=== PATIENT | male | born 1965 | race Caucasian/White ===

== ENCOUNTER 2019-07-10 08:58 | Emergency (ER) | payer BC ==
[2019-07-10] MEDS: Aspirin 81 MG Tab.Chew PO ONE (09:07)
[2019-07-10 09:24] LABS: CHLORIDE,CL 102 mEq/L (98-106); SODIUM,NA 139 mEq/L (136-145)
[2019-07-10 09:37] VITALS: BP 150/89
--- NOTE | 2019-07-10 09:38 | EDM.PDOC ---
ED HPI GENERAL MEDICAL PROBLEM - General Chief Complaint: Chest Pain Stated Complaint: chest pain Time Seen by Provider: 07/10/19 09:17 Source of Information: Reports: Patient History Limitations: Reports: No Limitations - History of Present Illness INITIAL COMMENTS - FREE TEXT/NARRATIVE: Patient presented to ER with complaints of right anterior chest pain. States has sharp twinges that radiate to the back. 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 [place] a bit short of breath. No nausea. No diaphoresis. No history of CAD. 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 No reflux/heartburn. Denies palpitations. Denies anxiety although patient does become tearful when obtaining history. Patient admits to family history of CAD. No previous stress test. Onset: Today, Sudden Duration: Hour(s): Location: Reports: Chest Quality: Reports: Ache, Sharp Severity: Moderate Improves with: Reports: Rest Associated Symptoms: Reports: Chest Pain, Shortness of Breath, Weakness. Denies : Cough, Fever/Chills, Loss of Appetite, Nausea/Vomiting Chest Pain Score (Numeric/FACES): 7 - Related Data Allergies Allergy/AdvReac Type Severity Reaction Status Date / Time No Known Allergies Allergy Verified 07/10/19 09:01 Home Meds: Home Meds Losartan Potassium 1 tab PO DAILY 07/10/19 [History] Omeprazole 20 mg PO DAILY #30 tablet. 07/10/19 [Rx] Past Medical History Cardiovascular History: Reports: Hypertension - Past Surgical History Musculoskeletal Surgical History: Reports: Shoulder Surgery, Other (See Below) Other Musculoskeletal Surgeries/Procedures:: bilat shoulder surgery 2019. back surgery Social & Family History - Family History Family Medical History: Noncontributory - Tobacco Use Smoking Status *Q: Current Every Day Smoker Years of Tobacco use: 20 Packs/Tins Daily: 0.5 - Alcohol Use Days Per Week of Alcohol Use: 7 Number of Drinks Per Day: 6 Total Drinks Per Week: 42 - Recreational Drug Use Recreational Drug Use: No ED ROS GENERAL - Review of Systems Review Of Systems: See Below Constitutional: Denies: Fever, Chills, Malaise, Weakness HEENT: Denies: Ear Discharge, Nose Pain, Sinus Problem, Vertigo Respiratory: Denies: Shortness of Breath, Cough Cardiovascular: Reports: Chest Pain. Denies: Edema, Lightheadedness Endocrine: Denies: Fatigue GI/Abdominal: Denies: Abdominal Pain, Nausea, Vomiting : Reports: No Symptoms Musculoskeletal: Reports: No Symptoms Skin: Reports: No Symptoms Neurological: Reports: No Symptoms ED EXAM, GENERAL - Physical Exam Exam: See Below Exam Limited By: No Limitations General Appearance: Alert, WD/WN, No Apparent Distress Ears: Normal External Exam, Normal TMs Nose: Normal Inspection, Normal Mucosa, No Blood Throat/Mouth: Normal Inspection, Normal Oropharynx Head: Normocephalic Neck: Normal Inspection, Supple, Non-Tender Respiratory/Chest: No Respiratory Distress, Lungs Clear, Normal Breath Sounds Cardiovascular: Regular Rate, Rhythm GI/Abdominal: Normal Bowel Sounds, Soft, Non-Tender Back Exam: Normal Inspection, Full Range of Motion. No: Muscle Spasm, Paraspinal Tenderness, Vertebral Tenderness Extremities: Normal Inspection, No Pedal Edema Neurological: Alert, Oriented Skin Exam: Warm, Dry Course - Vital Signs Last Recorded V/S: Last Vital Signs Temp 98.5 F 07/10/19 08:59 Pulse 89 07/10/19 09:36 Resp 11 L 07/10/19 09:36 BP 150/89 H 07/10/19 09:36 Pulse Ox 99 07/10/19 09:36 - Orders/Labs/Meds Orders: Active Orders 24 hr Category Date Time Status Chest 2V [CR] Stat Exams 07/10/19 09:08 Taken Labs: Laboratory Tests 07/10/19 07/10/19 07/10/19 Range/Units 09:06 09:10 09:10 WBC 9.9 (5.0-10.0) 10^3/uL RBC 4.62 (4.50-6.00) 10^6/uL Hgb 15.0 (14.0-18.0) g/dL Hct 43.3 (40.0-54.0) % MCV 93.7 (82.0-94.0) fL MCH 32.5 H (27.0-32.0) pg MCHC 34.6 (33.0-38.0) g/dL RDW Coeff of Tari 12.6 (11.0-15.0) % Plt Count 250 (150-400) 10^3/uL Neut % (Auto) 72.5 (35-85) % Lymph % (Auto) 18.2 (10-55) % [place] % (Auto) 7.0 (0-16) % Eos % (Auto) 1.9 (0-5) % Baso % (Auto) 0.4 (0-3) % Neut # (Auto) 7.16 H (1.80-7.00) 10^3/uL Lymph # (Auto) 1.80 (1.00-4.80) 10^3/uL [place] # (Auto) 0.69 (0.00-0.80) 10^3/uL Eos # (Auto) 0.19 (0.00-0.45) 10^3/uL Baso # (Auto) 0.04 10^3/uL PT 9.4 L (9.7-12.3) SEC INR 0.91 L (0.92-1.18) Sodium 139 (136-145) mEq/L Potassium 4.3 (3.5-5.0) mEq/L Chloride 102 (98-106) mEq/L Carbon Dioxide 26 (21-32) mmol/L BUN 15 (7-18) mg/dL Creatinine 1.0 (0.7-1.3) mg/dL Est Cr Clr Drug Dosing 87.85 mL/min Estimated GFR (MDRD) > 60 (>=60) mL/min Glucose 103 H (75-99) mg/dL Calcium 9.0 (8.4-10.1) mg/dL Lactate Dehydrogenase 190 (100-190) U/L Creatine Kinase 193 (35-232) U/L Troponin I < 0.017 (0.00-0.06) ng/mL Meds: Medications Discontinued Medications Generic Name Dose Route Start Last Admin Trade Name Fritzq PRN Reason Stop Dose Admin Aspirin 324 mg 07/10/19 09:07 07/10/19 09:07 Aspirin PO 07/10/19 09:08 324 mg STAT ONE Administration - Re-Assessments/Exams Free Text/Narrative Re-Assessment/Exam: 07/10/19 Labs all normal. EKG normal sinus rhythm. Chest xray normal. Discharge home. Start Omeprazole as patient does use nicotine, alcohol and admits to 10 cups of coffee per day. Scheduled stress test with Reinaldo John tomorrow. Departure - Departure Time of Disposition: 09:37 Disposition: Home, Self-Care 01 Condition: Good Clinical Impression: Atypical chest pain Prescriptions: Omeprazole 20 mg PO DAILY #30 tablet.dr Referrals: El John PA-C [Primary Care Provider] - Forms: ED Department Discharge Additional Instructions: 1. Rest 2. Decrease stimulants 3. Omeprazole 20 mg daily 4. Will contact you with appointment for stress test 5. Return if continue to have chest pain, shortness of breath or concern. - My Orders Last 24 Hours: My Active Orders 07/10/19 09:08 Chest 2V [CR] Stat - Assessment/Plan Last 24 Hours: My Active Orders 07/10/19 09:08 Chest 2V [CR] Stat
== END 2019-07-10 09:45 | disposition home or self-care (01) ==
LOC: CC.ED 08:58
DX: R07.89 Other chest pain (principal); I10 Essential (primary) hypertension; F17.210 Nicotine dependence, cigarettes, uncomplicated; Z79.899 Other long term (current) drug therapy
CPT/HCPCS: 36415; 71046; 80048; 82550; 83615; 84484; 85025; 85610; 93005; 99285-25; A9270-GY

== ENCOUNTER 2019-09-28 06:29 | Emergency (ER) | payer BC ==
[2019-09-28] MEDS ORDERED: Aspirin 81 MG Tab.Chew PO ONE (06:37)
[2019-09-28 07:01] VITALS: BP 128/88; PULSE 71
[2019-09-28 07:11] LABS: CHLORIDE,CL 103 mEq/L (98-106); SODIUM,NA 141 mEq/L (136-145)
[2019-09-28] MEDS ORDERED: Ketorolac 60 MG/2 ML SDV IM ONE (07:40)
--- NOTE | 2019-09-28 07:53 | EDM.PDOC ---
ED HPI GENERAL MEDICAL PROBLEM - General Chief Complaint: Chest Pain Stated Complaint: L Chest Pain, Reproducable Time Seen by Provider: 09/28/19 07:00 Source of Information: Reports: Patient History Limitations: Reports: No Limitations - History of Present Illness INITIAL COMMENTS - FREE TEXT/NARRATIVE: States that he slipped and fell on the rutted ground yesterday afternoon. Was able to work the rest of the afternoon. Woke about 4 am with left sided chest pain that would be really severe when he moved or took a deep breathe. If he moved the left arm it would make the pain worse. No SOB or diaphoresis with it. No other symptoms Onset: Today Location: Reports: Chest Quality: Reports: Stabbing Improves with: Reports: Rest Worsens with: Reports: Breathing, Movement Associated Symptoms: Reports: Chest Pain. Denies: Fever/Chills l chest wall Pain Score (Numeric/FACES): 10 - Related Data Allergies Allergy/AdvReac Type Severity Reaction Status Date / Time No Known Allergies Allergy Verified 09/28/19 06:49 Home Meds: Home Meds Losartan Potassium 1 tab PO DAILY 07/10/19 [History] Past Medical History Cardiovascular History: Reports: Hypertension - Past Surgical History Musculoskeletal Surgical History: Reports: Shoulder Surgery, Other (See Below) Other Musculoskeletal Surgeries/Procedures:: bilat shoulder surgery 2019. back surgery Social & Family History - Family History Family Medical History: Noncontributory - Tobacco Use Smoking Status *Q: Current Every Day Smoker Years of Tobacco use: 20 Packs/Tins Daily: 0.3 - Caffeine Use Caffeine Use: Reports: Coffee - Alcohol Use Days Per Week of Alcohol Use: 7 Number of Drinks Per Day: 4 Total Drinks Per Week: 28 - Recreational Drug Use Recreational Drug Use: No ED ROS GENERAL - Review of Systems Review Of Systems: See Below Constitutional: Denies: Fever, Chills HEENT: Reports: No Symptoms Respiratory: Reports: No Symptoms Cardiovascular: Reports: Chest Pain. Denies: Edema GI/Abdominal: Denies: Nausea, Vomiting Neurological: Reports: No Symptoms ED EXAM, GENERAL - Physical Exam Exam: See Below Exam Limited By: No Limitations General Appearance: Alert, WD/WN, Moderate Distress Ears: Normal External Exam, Normal Canal, Normal TMs Nose: Normal Inspection Throat/Mouth: Normal Inspection, Normal Oropharynx Head: Atraumatic, Normocephalic Neck: Normal Inspection, Supple, Non-Tender, Full Range of Motion Respiratory/Chest: No Respiratory Distress, Lungs Clear, Normal Breath Sounds Cardiovascular: Normal Peripheral Pulses, Regular Rate, Rhythm, No Edema, Other (increase in left sided chest pain with any palpation or movement. No crepitus noted.) GI/Abdominal: Normal Bowel Sounds, Soft Extremities: Normal Inspection, Normal Range of Motion, Non-Tender Neurological: Alert, Oriented Skin Exam: Warm, Dry, Intact Course - Vital Signs Last Recorded V/S: Last Vital Signs Temp 97.5 F 09/28/19 06:31 Pulse 71 09/28/19 07:01 Resp 16 09/28/19 07:01 BP 128/88 09/28/19 07:01 Pulse Ox 99 09/28/19 07:01 - Orders/Labs/Meds Labs: Laboratory Tests 09/28/19 09/28/19 09/28/19 Range/Units 06:36 06:40 06:40 WBC 6.7 (5.0-10.0) 10^3/uL RBC 4.25 L (4.50-6.00) 10^6/uL Hgb 14.0 (14.0-18.0) g/dL Hct 40.3 (40.0-54.0) % MCV 94.8 H (82.0-94.0) fL MCH 32.9 H (27.0-32.0) pg MCHC 34.7 (33.0-38.0) g/dL RDW Coeff of Tari 12.5 (11.0-15.0) % Plt Count 236 (150-400) 10^3/uL Neut % (Auto) 61.6 (35-85) % Lymph % (Auto) 26.9 (10-55) % [place] % (Auto) 8.7 (0-16) % Eos % (Auto) 2.5 (0-5) % Baso % (Auto) 0.3 (0-3) % Neut # (Auto) 4.11 (1.80-7.00) 10^3/uL Lymph # (Auto) 1.80 (1.00-4.80) 10^3/uL [place] # (Auto) 0.58 (0.00-0.80) 10^3/uL Eos # (Auto) 0.17 (0.00-0.45) 10^3/uL Baso # (Auto) 0.02 10^3/uL APTT 23.7 (23.2-32.3) SEC Sodium 141 (136-145) mEq/L Potassium 4.2 (3.5-5.0) mEq/L Chloride 103 (98-106) mEq/L Carbon Dioxide 24 (21-32) mmol/L BUN 16 (7-18) mg/dL Creatinine 0.9 (0.7-1.3) mg/dL Est Cr Clr Drug Dosing 97.61 mL/min Estimated GFR (MDRD) > 60 (>=60) mL/min Glucose 89 (75-99) mg/dL Calcium 8.8 (8.4-10.1) mg/dL Magnesium 1.9 (1.8-2.4) mg/dL Total Bilirubin 0.5 (0.0-1.0) mg/dL AST 32 (15-37) U/L ALT 33 (12-78) U/L Alkaline Phosphatase 67 (46-116) U/L Troponin I < 0.017 (0.00-0.06) ng/mL Total Protein 6.6 (6.4-8.2) g/dL Albumin 3.8 (3.4-5.0) g/dL Meds: Medications Discontinued Medications Generic Name Dose Route Start Last Admin Trade Name Freq PRN Reason Stop Dose Admin Aspirin 324 mg 09/28/19 06:37 09/28/19 06:50 Aspirin PO 09/28/19 06:38 324 mg ONETIME ONE Administration Ketorolac Tromethamine 60 mg 09/28/19 07:40 09/28/19 07:46 Toradol IM 09/28/19 07:41 60 mg ONETIME ONE Administration Orphenadrine Citrate 60 mg 09/28/19 07:45 09/28/19 07:53 Norflex IM 60 mg Q12H DALJIT Administration - Re-Assessments/Exams Free Text/Narrative Re-Assessment/Exam: 09/28/19 07:45 discussed possible rib fracture on xray. labs and EKG are normal. Departure - Departure Time of Disposition: 07:56 Disposition: Home, Self-Care 01 Condition: Good Clinical Impression: Left-sided chest wall pain Instructions: Chest Wall Pain, [id number] Referrals: Micki John PA-C [Primary Care Provider] - Forms: ED Department Discharge Additional Instructions: flexeril 10 mg twice a day as needed for muscle spasms mobic 15 mg daily for pain and inflammation Recheck with Reinaldo in a week for follow up or sooner if pain changes. - Problem List & Annotations (1) Left-sided chest wall pain SNOMED Code(s): 281493683 Code(s): R07.89 - OTHER CHEST PAIN Status: Acute Priority: High - Problem List Review Problem List Initiated/Reviewed/Updated: Yes
== END 2019-09-28 08:14 | disposition home or self-care (01) ==
LOC: CC.ED 06:29
DX: R07.89 Other chest pain (principal); I10 Essential (primary) hypertension; F17.210 Nicotine dependence, cigarettes, uncomplicated; Z79.899 Other long term (current) drug therapy
CPT/HCPCS: 36415; 71101-LT; 80053; 83735; 84484; 85025; 85730; 93005; 96372; 99285-25; A9270-GY; J1885; J2360

== ENCOUNTER 2023-02-16 10:43 | Emergency (ER) | payer BC ==
[2023-02-16 11:06] VITALS: BP 138/91; PULSE 93
[2023-02-16 12:23] LABS: AMPHETAMINES,URINE NEGATIVE (NEGATIVE); BARBITURATES,URINE NEGATIVE (NEGATIVE); BENZODIAZEPINE,URINE NEGATIVE (NEGATIVE); MDMA (ECSTASY), URINE NEGATIVE (NEGATIVE); METHADONE,URINE NEGATIVE (NEGATIVE); METHAMPHETAMINES,URINE NEGATIVE (NEGATIVE); OPIATES,URINE NEGATIVE (NEGATIVE); OXYCODONE,URINE NEGATIVE (NEGATIVE); PHENCYCLIDINE,URINE NEGATIVE (NEGATIVE); TCA,URINE NEGATIVE (NEGATIVE)
== END 2023-02-16 12:35 ==
LOC: CC.ED 10:43
DX: F10.129 Alcohol abuse with intoxication, unspecified (principal); R45.850 Homicidal ideations; R45.851 Suicidal ideations; M10.9 Gout, unspecified; I10 Essential (primary) hypertension; Z79.899 Other long term (current) drug therapy; Z72.0 Tobacco use; Y90.8 Blood alcohol level of 240 mg/100 ml or more
CPT/HCPCS: 36415; 80053; 80305-QW; 80307; 81001; 85025; 99284; 99285